=== PATIENT | male | born 1955 | race Caucasian/White ===

== ENCOUNTER → 2021-09-27 | Outpatient (CLI) | payer MEDICARE, OTHER ==
--- NOTE | 2021-10-01 07:03 | MR ---
EXAMINATION TYPE: MR Prostate wo/w con DATE OF EXAM: 09/27/2021 COMPARISON: None. INDICATION: MALIGNANT NEOPLASM OF PROSTATE PSA: 6.90 ng/ml on May 14, 2020 and 6.43 on November 21, 2020 Recent Biopsy and Date: March 22, 2021 Pathology Report (If Applicable): Left lateral mid adenocarcinoma [place] score 3+3 = 6 approximately 15% of tissue. Left mid adenocarcinoma [place] score 3+3 = 6 involving 10% of the tissue. TECHNIQUE: Examination was performed using a 3T MRI without an endorectal coil. Multiparametric imaging was perf ormed with T2 mutliplanar sequences, axial diffusion weighted imaging and dynamic contrast enhanced i maging, utilizing 11 mL intravenous Gadavist gadolinium contrast. FINDINGS: Exam noted suboptimal as patient unable to hold still. There is significant motion compromi se. PROSTATE VOLUME: 4.9 cm SI x 5.2 cm AP x 6.6 cm LR Vol= 88.05 cc Predicted PSA equals 10.57 PSA DENSITY: 0.07 ng/ml/cc Peripheral zone fell within normal limits. No areas of restricted diffusion or hypointense signal on ADC mapping. Transitional zone shows hypertrophy and lobulated contour with heterogeneous diffuse low T2 signal. N o definitive suspicious focal areas of more prominent decreased T2 signal. No areas of restricted dif fusion identified. Prostate capsule is maintained. Seminal vesicles appear within normal limits. No concerning pelvic ad enopathy is seen. No concerning pelvic fluid collection. No abnormal bowel dilatation. Visualized oss eous structures are intact. IMPRESSION: Suboptimal study. Enlarged prostate consistent with BPH. A focus of clinically significant cancer is not identified. Highest Assessment Category: 1 MRI Stage: T1c N0 M0 based on review of pelvic images. False negative rates for MRI range from 5-20% depending on risk profile. Assessment Categories: 1 ? Very low (clinically significant cancer is highly unlikely to be present) 2 ? Low (clinically significant cancer is unlikely to be present) 3 ? Intermediate (the presence of clinically significant cancer is equivocal) 4 ? High (clinically significant cancer is likely to be present) 5 ? Very high (clinically significant cancer is highly likely to be present)
== END | disposition home or self-care (01) ==
LOC: RADMRIMAIN 09:04
PROVIDERS: ATTEND Urology
DX: C61 Malignant neoplasm of prostate (principal)
CPT/HCPCS: 72197; A9585

== ENCOUNTER 2022-05-09 11:51 | Day surgery (SDC) | payer MEDICARE, OTHER ==
[2022-05-06 10:47] VITALS: BMI 34.7
[~2022-05-09 11:51] MED LIST: DEXAMETHASONE SOD PHOSPHATE 4 MG/ML 1 ML VIAL IV ONE; HYDROmorphone 0.5 MG/0.5 ML SYRINGE IVP PRN; LACTATED RINGERS 1,000 ML IV SCH; MIDAZOLAM 2 MG/2 ML VIAL IV PRN; ONDANSETRON 4 MG/2 ML VIAL IVP ONE
[2022-05-09 12:58] VITALS: TEMP 97.7
[2022-05-09] MEDS ORDERED: KETAMINE 10 MG/ML 20 ML VIAL ONE (13:29)
[2022-05-09] MEDS ORDERED: fentaNYL (PF) 50 MCG/ML 2 ML AMP ONE (13:29)
[2022-05-09] MEDS ORDERED: PROPOFOL 10 MG/ML 20 ML VIAL IV ONE (13:29)
[2022-05-09] MEDS ORDERED: MIDAZOLAM 2 MG/2 ML VIAL ONE (13:29)
[2022-05-09] MEDS ORDERED: BUPIVACAINE (PF) 0.25% 30 ML VIAL SQ ONE (13:55)
[2022-05-09 14:32] VITALS: BP 114/73; PULSE 76; RESP 16
--- NOTE | 2022-05-13 08:36 | OP ---
OPERATIVE REPORT PREOPERATIVE DIAGNOSIS: Hammertoe, second digit, right foot. POSTOPERATIVE DIAGNOSIS: Hammertoe, second digit, right foot. PROCEDURE PERFORMED: Hammertoe correction, second digit, right foot. ANESTHESIA: IV sedation local. HEMOSTASIS: Right ankle tourniquet at 250 mmHg. ESTIMATED BLOOD LOSS: Minimal. MATERIALS: Arthrex 16 mm DynaNite hammertoe implant. INJECTABLES: 20 mL of 0.25% Marcaine preop. SPECIMENS: None. COMPLICATIONS: None. DESCRIPTION OF PROCEDURE: The patient was brought into the operative room and placed on the table in the supine position. A time-out was taken to confirm correct patient, identifiers, correct laterality of surgery, and correct procedure. Once the staff in the room were in agreement of time-out, the patient was placed under IV sedation anesthesia. A well- padded tourniquet was placed on the right ankle and 20 mL of 0.25% Marcaine was injected as a right ankle block. The right foot was then prepped and draped in usual manner. The right foot was exsanguinated and tourniquet was inflated to 250 mmHg. Attention was directed to the proximal interphalangeal joint of the 2nd toe, where a linear incision was made. It was deepened down to the subcutaneous tissue careful to identify, avoid, and retract any neurovascular structures and cauterize any bleeding vessels. A transverse incision was made through the capsule and extensor tendon at the level of the proximal interphalangeal joint and soft tissues reflected to expose the articular surfaces. A sagittal saw was used to resect the proximal phalangeal head and the articular surface of the middle phalanx. Once that was completed, a guidewire was utilized to create a negative retoucher hole in the proximal phalanx down to the base. It was then removed and inserted at the base of the middle phalanx and advanced out the 2nd digit. A small portion of the wire was left exposed so that the drill hole for the implant could be made and then the drill hole in the proximal phalanx was also completed at this time. The threaded portion of the implant was then placed into the middle phalanx down to proper depth, which was confirmed on a fluoroscopy. The wire was retracted slightly so that the arms of the implant were not engaged and those arms were aligned with a drill hole in the proximal phalanx and the implant was press-fit into the hole, bringing the articular surfaces together. Fluoroscopy confirmed the proper placement of the implant as well as rectus alignment of the digit and good bony contact. Visually, there was good bony contact at the arthrodesis site. The wire was advanced through the implant and deployed the arms in the proximal phalanx and then the wire was removed. The wound was then thoroughly irrigated with antibiotic saline. The extensor tendon was repaired with 3-0 Vicryl. Skin closure was done with 3-0 nylon. A nonadherent gauze and a dry sterile dressing applied to the right foot. The tourniquet was released. Capillary refill returned to all digits on the right foot. The patient tolerated the above procedure and anesthesia well, went to recovery with vital signs stable. MMODL / IJN: [id number] /
== END 2022-05-09 15:06 | disposition home or self-care (01) ==
LOC: OR 11:51
PROVIDERS: ATTEND Podiatrist
DX: M20.41 Other hammer toe(s) (acquired), right foot (principal); I10 Essential (primary) hypertension; G47.33 Obstructive sleep apnea (adult) (pediatric); F10.20 Alcohol dependence, uncomplicated; F41.9 Anxiety disorder, unspecified; E03.9 Hypothyroidism, unspecified; Z85.46 Personal history of malignant neoplasm of prostate; Z98.1 Arthrodesis status; Z98.890 Other specified postprocedural states; Z88.8 Allergy status to other drugs, medicaments and biological substances; Z79.1 Long term (current) use of non-steroidal anti-inflammatories (NSAID); Z79.891 Long term (current) use of opiate analgesic; Z79.899 Other long term (current) drug therapy; Z79.83 Long term (current) use of bisphosphonates; Z79.890 Hormone replacement therapy
CPT/HCPCS: 28285; C1713; J2250; J1100; J0690; J2405; J3010; J2704